=== PATIENT | male | born 1975 | race American Indian/Alaskan Native ===

== ENCOUNTER 2017-07-22 14:28 | Emergency (ER) | payer SELFPAY ==
[2017-07-22 15:14] VITALS: BP 143/90
--- NOTE | 2017-07-22 16:51 | Emergency Department Report ---
ED General Adult HPI - General Chief complaint: Eye Problems Stated complaint: RED EYES/ELVATED BP/HEADACHE Time Seen by Provider: 07/22/17 16:25 Source: patient Mode of arrival: Ambulatory Limitations: No Limitations - History of Present Illness Initial comments: Patient is a 42-year-old black male who is presenting with 3 days of eye pain. Patient states he has some redness and burning sensation. Patient states is crusting in the morning. Patient states he also has a mild headache associated with this as well as some congestion. The patient denies nausea vomiting diarrhea fevers chills at this time. Patient also states he is run out of his blood pressure medicines and his blood pressure before arrival at home was 170 systolic. Patient denies any chest pain shortness of breath decreased urination at this time. - Related Data Previous Rx's Medication Instructions Recorded Last Taken Type Insulin NPH/Regular [NovoLIN 70/30] 16 unit SQ BIDDIAB #10 ml 07/27/14 Unknown Rx Lisinopril [Zestril TAB] 10 mg PO QDAY #30 tablet 07/27/14 Unknown Rx Colchicine 0.6 mg PO DAILY #5 capsule 09/10/15 Unknown Rx Indomethacin [Indocin] 25 mg PO Q8H #25 capsule 09/10/15 Unknown Rx Colchicine 0.6 mg PO DAILY #30 capsule 03/12/16 Unknown Rx Indomethacin [Indocin] 25 mg PO Q8H #30 capsule 03/12/16 Unknown Rx Gentamicin 0.3% Ophth Soln 2 drops OP Q4H #1 bottle 07/22/17 Unknown Rx Lisinopril/Hydrochlorothiazide 1 each PO DAILY #30 tablet 07/22/17 Unknown Rx [Zestoretic 10-12.5 mg Tablet] Allergies Allergy/AdvReac Type Severity Reaction Status Date / Time Niacin Preparations Allergy Shortness Verified 03/12/16 03:26 of Breath ED Review of Systems ROS: Stated complaint: RED EYES/ELVATED BP/HEADACHE Other details as noted in HPI Comment: All other systems reviewed and negative ED Past Medical Hx - Past Medical History Previous Medical History?: Yes Hx Hypertension: Yes (NO MEDS) Hx Diabetes: Yes Additional medical history: pancreatitis, high cholesterol, gout - Surgical History Past Surgical History?: No - Social History Smoking Status: Current Every Day Smoker Substance Use Type: Alcohol, Marijuana - Medications Home Medications: Home Medications Medication Instructions Recorded Confirmed Last Taken Type Insulin NPH/Regular [NovoLIN 70/30] 16 unit SQ BIDDIAB #10 ml 07/27/14 03/12/16 Unknown Rx Lisinopril [Zestril TAB] 10 mg PO QDAY #30 tablet 07/27/14 03/12/16 Unknown Rx Colchicine 0.6 mg PO DAILY #5 capsule 09/10/15 03/12/16 Unknown Rx Indomethacin [Indocin] 25 mg PO Q8H #25 capsule 09/10/15 03/12/16 Unknown Rx Colchicine 0.6 mg PO DAILY #30 capsule 03/12/16 Unknown Rx Indomethacin [Indocin] 25 mg PO Q8H #30 capsule 03/12/16 Unknown Rx Gentamicin 0.3% Ophth Soln 2 drops OP Q4H #1 bottle 07/22/17 Unknown Rx Lisinopril/Hydrochlorothiazide 1 each PO DAILY #30 tablet 07/22/17 Unknown Rx [Zestoretic 10-12.5 mg Tablet] ED Physical Exam - General Limitations: No Limitations General appearance: alert, in no apparent distress - Head Head exam: Present: atraumatic, normocephalic - Eye Eye exam: Present: normal appearance, conjunctival injection - ENT ENT exam: Present: mucous membranes moist - Neck Neck exam: Present: normal inspection - Respiratory Respiratory exam: Present: normal lung sounds bilaterally. Absent: respiratory distress, wheezes, rales, rhonchi - Cardiovascular Cardiovascular Exam: Present: regular rate, normal rhythm. Absent: systolic murmur, diastolic murmur, rubs, gallop - GI/Abdominal GI/Abdominal exam: Present: soft, normal bowel sounds - Rectal Rectal exam: Present: deferred - Extremities Exam Extremities exam: Present: normal inspection - Back Exam Back exam: Present: normal inspection - Neurological Exam Neurological exam: Present: alert, oriented X3 - Psychiatric Psychiatric exam: Present: normal affect, normal mood - Skin Skin exam: Present: warm, dry, intact, normal color. Absent: rash ED Course Vital Signs 07/22/17 15:10 Temperature 98.8 F Pulse Rate 102 H Respiratory 19 Rate Blood Pressure 143/90 O2 Sat by Pulse 95 Oximetry ED Medical Decision Making - Medical Decision Making Patient is a 6-year-old black male who is presenting with elevated blood pressure and what appears to be a bacterial conjunctivitis. Both of these conditions will be treated. Patient be discharged home. Critical care attestation.: If time is entered above; I have spent that time in minutes in the direct care of this critically ill patient, excluding procedure time. ED Disposition Clinical Impression: Hypertensive urgency, Bacterial conjunctivitis Disposition: [id number] TO HOME OR SELFCARE Is pt being admited?: No Does the pt Need Aspirin: No Condition: Stable Instructions: Hypertension (ED), Conjunctivitis (ED) Prescriptions: Gentamicin 0.3% Ophth Soln 2 drops OP Q4H #1 bottle Lisinopril/Hydrochlorothiazide [Zestoretic 10-12.5 mg Tablet] 1 each PO DAILY # 30 tablet
== END 2017-07-22 16:58 | disposition home or self-care (01) ==
LOC: ED 14:28
DX: I10 Essential (primary) hypertension (principal); B30.9 Viral conjunctivitis, unspecified; E11.9 Type 2 diabetes mellitus without complications; E78.00 Pure hypercholesterolemia, unspecified; M10.9 Gout, unspecified; F17.200 Nicotine dependence, unspecified, uncomplicated
CPT/HCPCS: 99281